=== PATIENT | male | born 1935 | race Caucasian/White ===

== ENCOUNTER 2019-04-09 05:56 | Emergency (ER) | payer MEDICARE ==
[~2019-04-09 05:56] MED LIST: ALLO100T PO; AMLO10TA7 PO; AMOX-426 PO; ASPI-555 PO; ATEN25TA PO; AZIT500T4 PO; HYDR25TA PO; POTA8TAB4 PO; ROSU20TA23 PO; WARF10TA45 PO
[2019-04-09 06:33] LABS: BASOPHILS % (AUTO) 0.5 % (0.0-5.0); EOSINOPHILS % (AUTO) 2.1 % (0.0-8.0); HEMATOCRIT 41.1 % (42-54); LYMPHOCYTES % (AUTO) 11.5 % (21.0-51.0); MEAN CORPUSCULAR HEMOGLOBIN 30.2 pg (27.0-33.0); MEAN CORPUSCULAR HGB CONC 33.9 g/dL (32.0-36.0); MEAN CORPUSCULAR VOLUME 89.1 fL (79-99); MONOCYTES % (AUTO) 10.9 % (3.0-13.0); PLATELET COUNT (AUTO) 175 K/uL (130-400); RED BLOOD CELL COUNT(AUTO) 4.61 MIL/uL (4.50-6.20); RED CELL DISTRIBUTION WIDTH 14.7 % (11.0-15.5)
[2019-04-09 06:43] LABS: POTASSIUM 3.7 mmol/L (3.5-5.1)
[2019-04-09 06:46] LABS: INR 2.51 (0.85-1.15); PARTIAL THROMBOPLASTIN TIME 44.3 SEC (26.3-35.5); PROTHROMBIN TIME 25.4 SEC (9.6-11.6)
[2019-04-09 06:49] LABS: ALBUMIN 3.8 g/dL (3.5-5.0); BILIRUBIN,TOTAL 0.6 mg/dL (0.2-1.0); TOTAL PROTEIN, SERUM 7.9 g/dL (6.0-8.3)
[2019-04-09 07:02] LABS: B-TYPE NATRIURETIC PEPTIDE 245 pg/mL (0-100)
== END 2019-04-09 07:07 | disposition home or self-care (01) ==
LOC: EDH 05:56
DX: J06.9 Acute upper respiratory infection, unspecified (principal); I10 Essential (primary) hypertension; E78.5 Hyperlipidemia, unspecified; Z95.2 Presence of prosthetic heart valve; Z87.891 Personal history of nicotine dependence; Z88.8 Allergy status to other drugs, medicaments and biological substances
CPT/HCPCS: 36415; 71045; 80053; 82550; 83880; 84484; 85025; 85610; 85730; 87804; 93005

== ENCOUNTER 2020-09-18 16:50 | Inpatient (IN) | payer MEDICARE ==
[~2020-09-18] VITALS: Ht 175.3 cm; Wt 106.6 kg
[2020-09-18] MEDS: AMLODIPINE 5 MG TAB PO SCH (11:45)
[~2020-09-18 16:50] MED LIST changes: +AMLO-258 PO; -AMLO10TA7 PO; -ASPI-555 PO; +ASPI-556 PO; -POTA8TAB4 PO; +POTA8TAB71 PO
[2020-09-18 17:47] LABS: ABG BASE EXCESS -0.3 mmol/L (-2.0-3.0); ABG HCO3 24.5 mmol/L (21.0-28.0); ABG OXYGEN SATURATION 92.9 % (95.0-99.0); ABG PCO2 41 mmHg (35-48)
[2020-09-18 18:04] LABS: BASOPHILS % (AUTO) 0.7 % (0.0-5.0); EOSINOPHILS % (AUTO) 1.3 % (0.0-8.0); HEMATOCRIT 41.8 % (42-54); LYMPHOCYTES % (AUTO) 7.5 % (21.0-51.0); MEAN CORPUSCULAR HEMOGLOBIN 30.9 pg (27.0-33.0); MEAN CORPUSCULAR VOLUME 91.1 fL (79-99); MONOCYTES % (AUTO) 11.1 % (3.0-13.0); PLATELET COUNT (AUTO) 219 K/uL (130-400); RED BLOOD CELL COUNT(AUTO) 4.59 MIL/uL (4.50-6.20); RED CELL DISTRIBUTION WIDTH 14.9 % (11.0-15.5); WHITE BLOOD COUNT (AUTO) 10.7 K/uL (4.8-10.8)
[2020-09-18 18:20] LABS: INR 2.64 (0.85-1.15); PROTHROMBIN TIME 26.3 SEC (9.6-11.6)
[2020-09-18 18:21] LABS: PARTIAL THROMBOPLASTIN TIME 37.2 SEC (26.3-35.5)
[2020-09-18 18:26] LABS: B-TYPE NATRIURETIC PEPTIDE 215 pg/mL (0-100)
[2020-09-18 18:40] LABS: CREATININE 1.2 mg/dL (0.5-1.5); POTASSIUM 4.6 mmol/L (3.5-5.1)
[2020-09-18 18:42] LABS: ALBUMIN 4.4 g/dL (3.5-5.0); BILIRUBIN,TOTAL 1.6 mg/dL (0.2-1.0); TOTAL PROTEIN, SERUM 8.4 g/dL (6.0-8.3)
[2020-09-18] MEDS ORDERED: NITROGLYCERIN 1GM OINT 1 INCH/1GM TD ONE (20:09)
[2020-09-18] MEDS ORDERED: FUROSEMIDE 20MG VIAL ONE (20:09)
[2020-09-18] MEDS ORDERED: ZOSYN 3.375GM+NS 50ML 50 ML IV ONE (20:09)
[2020-09-18] MEDS ORDERED: IOHEXOL-350 75 ML VIAL IV ONE (21:34)
[2020-09-18] MEDS ORDERED: GUAIFENESIN-DM 200/20 MG 10 ML PO PRN (23:15)
[2020-09-18] MEDS ORDERED: ACETAMINOPHEN 325 MG TAB PO PRN (23:15)
[2020-09-18] MEDS ORDERED: ONDANSETRON 4MG INJ IV PRN (23:15)
[2020-09-18] MEDS ORDERED: LACTULOSE 20 GM/30 ML UDCUP PO PRN (23:15)
[2020-09-18] MEDS ORDERED: SOLU-MEDROL 125MG VIAL ONE (23:39)
[2020-09-18] MEDS: ATORVASTATIN 40 MG TABLET PO SCH (23:40)
[2020-09-18] MEDS: WARFARIN SODIUM 5 MG TAB PO SCH (23:45)
[2020-09-18] MEDS: METOPROLOL SUCCINATE 50 MG TAB.SR.24H PO SCH (23:50)
[2020-09-19] MEDS ORDERED: POTASSIUM CHLORIDE 10% ELIXIR 20 MEQ/15 ML UDCUP PO PRN
[2020-09-19] MEDS: ASPIRIN 325 MG TABLET PO SCH
[2020-09-19] MEDS ORDERED: KCL 20 MEQ ERTAB PO PRN
[2020-09-19] MEDS ORDERED: MAGNESIUM 2GM PREMIX 50ML 50 ML IV PRN
[2020-09-19] MEDS ORDERED: POTASSIUM CHLORIDE 20MEQ/100ML 100 ML IV PRN
[2020-09-19] MEDS ORDERED: ATORVASTATIN 40 MG TABLET ONE (00:03)
[2020-09-19] MEDS: IPRATROPIUM/ALBUTEROL SULFATE 3 ML SOLUTION IH SCH ×6 (02:00→22:00)
[2020-09-19] MEDS: ZOSYN 3.375GM+NS 50ML 50 ML IV SCH ×3 (05:00→20:30)
[2020-09-19] MEDS ORDERED: NITROGLYCERIN 1GM OINT 1 INCH/1GM TD ONE ×2 (05:57→08:35)
[2020-09-19] MEDS ORDERED: ZOSYN 3.375GM+NS 50ML 50 ML IV ONE (05:57)
[2020-09-19] MEDS ORDERED: ACETAMINOPHEN 325 MG TAB ONE (06:14)
[2020-09-19] MEDS: INSULIN HUMULIN R 100 UNIT/ML 3ML SQ SCH ×4 (07:30→21:48)
[2020-09-19] MEDS: SOLU-MEDROL 125MG VIAL IV SCH ×3 (08:00→16:00)
[2020-09-19] MEDS: NITROGLYCERIN 1GM OINT 1 INCH/1GM TD SCH ×3 (08:00→16:26)
[2020-09-19] MEDS ORDERED: SOLU-MEDROL 125MG VIAL ONE (08:34)
[2020-09-19] MEDS ORDERED: AMIODARONE 200 MG TABLET PO ONE (08:34)
[2020-09-19] MEDS ORDERED: FUROSEMIDE 40MG VIAL ONE (08:34)
[2020-09-19] MEDS ORDERED: BENZONATATE 100 MG CAPSULE PO ONE (08:34)
[2020-09-19] MEDS ORDERED: FAMOTIDINE 20MG VIAL IV ONE (08:35)
[2020-09-19] MEDS ORDERED: ASPIRIN 81MG CHEW TAB ONE (08:37)
[2020-09-19] MEDS ORDERED: AMLODIPINE 5 MG TAB ONE (08:37)
[2020-09-19] MEDS ORDERED: SPIRONOLACTONE 25 MG TAB ONE (08:38)
[2020-09-19] MEDS ORDERED: MULTIVITAMIN TABLET ONE (08:38)
[2020-09-19] MEDS ORDERED: METOPROLOL SUCCINATE 50 MG TAB.SR.24H PO ONE (08:38)
[2020-09-19] MEDS: BENZONATATE 100 MG CAPSULE PO SCH ×3 (09:00→20:33)
[2020-09-19] MEDS: AMLODIPINE 5 MG TAB PO SCH (09:00)
[2020-09-19] MEDS: MULTIVITAMIN TABLET PO SCH (09:00)
[2020-09-19] MEDS: ASPIRIN 81MG CHEW TAB PO SCH (09:00)
[2020-09-19] MEDS: SPIRONOLACTONE 25 MG TAB PO SCH (09:00)
[2020-09-19] MEDS: METOPROLOL SUCCINATE 50 MG TAB.SR.24H PO SCH (09:00)
[2020-09-19] MEDS: AMIODARONE 200 MG TABLET PO SCH ×2 (09:00→20:31)
[2020-09-19] MEDS: FAMOTIDINE 20MG VIAL IV SCH (09:00)
[2020-09-19] MEDS: FUROSEMIDE 40MG VIAL IVP SCH ×2 (09:00→20:32)
[2020-09-19] MEDS ORDERED: INSULIN HUMULIN R 100 UNIT/ML 3ML ONE (11:16)
[2020-09-19 12:31] VITALS: BP 150/71
[2020-09-19 16:30] VITALS: BP 129/55
[2020-09-19 20:08] VITALS: BP 132/43
[2020-09-19] MEDS: ATORVASTATIN 40 MG TABLET PO SCH (20:32)
[2020-09-19 23:08] VITALS: BP 120/51
[2020-09-19] MEDS ORDERED: ALLOPURINOL 100 MG TABLET PO SCH (23:35)
[2020-09-19] MEDS: WARFARIN SODIUM 5 MG TAB PO SCH (23:52)
[2020-09-19] MEDS: ALLOPURINOL 100 MG TABLET PO SCH (23:54)
[2020-09-20] MEDS: ASPIRIN 325 MG TABLET PO SCH
[2020-09-20] MEDS: SOLU-MEDROL 125MG VIAL IV SCH ×4 (00:15→23:47)
[2020-09-20] MEDS: NITROGLYCERIN 1GM OINT 1 INCH/1GM TD SCH ×2 (00:18→08:34)
[2020-09-20] MEDS: IPRATROPIUM/ALBUTEROL SULFATE 3 ML SOLUTION IH SCH ×6 (02:07→21:34)
[2020-09-20 04:26] VITALS: BP 124/49
[2020-09-20] MEDS: ZOSYN 3.375GM+NS 50ML 50 ML IV SCH (04:40)
[2020-09-20 05:43] LABS: BASOPHILS % (AUTO) 0.1 % (0.0-5.0); HEMATOCRIT 37.7 % (42-54); LYMPHOCYTES % (AUTO) 1.7 % (21.0-51.0); MEAN CORPUSCULAR HEMOGLOBIN 30.6 pg (27.0-33.0); MEAN CORPUSCULAR HGB CONC 34.2 g/dL (32.0-36.0); MEAN CORPUSCULAR VOLUME 89.5 fL (79-99); MONOCYTES % (AUTO) 2.6 % (3.0-13.0); PLATELET COUNT (AUTO) 223 K/uL (130-400); RED BLOOD CELL COUNT(AUTO) 4.21 MIL/uL (4.50-6.20); RED CELL DISTRIBUTION WIDTH 14.8 % (11.0-15.5); WHITE BLOOD COUNT (AUTO) 20.3 K/uL (4.8-10.8)
[2020-09-20 05:49] LABS: CREATININE 1.6 mg/dL (0.5-1.5)
[2020-09-20 05:56] LABS: B-TYPE NATRIURETIC PEPTIDE 343 pg/mL (0-100)
[2020-09-20] MEDS: INSULIN HUMULIN R 100 UNIT/ML 3ML SQ SCH ×4 (06:23→21:00)
[2020-09-20 07:30] VITALS: BP 124/52
[2020-09-20] MEDS ORDERED: CEFEPIME HCL 1 GM VIAL IVP SCH (08:15)
[2020-09-20] MEDS: ASPIRIN 81MG CHEW TAB PO SCH (08:31)
[2020-09-20] MEDS: SPIRONOLACTONE 25 MG TAB PO SCH (08:32)
[2020-09-20] MEDS: AMIODARONE 200 MG TABLET PO SCH ×2 (08:32→22:52)
[2020-09-20] MEDS: MULTIVITAMIN TABLET PO SCH (08:32)
[2020-09-20] MEDS: AMLODIPINE 5 MG TAB PO SCH (08:32)
[2020-09-20] MEDS: METOPROLOL SUCCINATE 50 MG TAB.SR.24H PO SCH (08:33)
[2020-09-20] MEDS: FAMOTIDINE 20MG VIAL IV SCH ×2 (08:33→22:52)
[2020-09-20] MEDS: BENZONATATE 100 MG CAPSULE PO SCH ×3 (08:54→22:52)
[2020-09-20 11:54] VITALS: BP 130/60
[2020-09-20] MEDS: CEFTRIAXONE 1G VIAL IVP SCH (13:19)
[2020-09-20] MEDS: AZITHROMYCIN 500MG+NS 250ML 250 ML IV SCH (13:19)
[2020-09-20] MEDS: WARFARIN SODIUM 5 MG TAB PO SCH (17:01)
[2020-09-20 18:14] VITALS: BP 118/49
[2020-09-20 19:00] VITALS: BP 125/66
[2020-09-20] MEDS: ATORVASTATIN 40 MG TABLET PO SCH (22:52)
[2020-09-20] MEDS: ALLOPURINOL 100 MG TABLET PO SCH (22:52)
[2020-09-21] VITALS (8 sets, daily range): BP systolic 109–128; BP diastolic 48–58
[2020-09-21] MEDS: IPRATROPIUM/ALBUTEROL SULFATE 3 ML SOLUTION IH SCH ×6 (02:05→22:47)
[2020-09-21 05:06] LABS: HEMATOCRIT 37.4 % (42-54); MEAN CORPUSCULAR HEMOGLOBIN 30.3 pg (27.0-33.0); MEAN CORPUSCULAR HGB CONC 33.4 g/dL (32.0-36.0); MEAN CORPUSCULAR VOLUME 90.8 fL (79-99); RED BLOOD CELL COUNT(AUTO) 4.12 MIL/uL (4.50-6.20); RED CELL DISTRIBUTION WIDTH 14.9 % (11.0-15.5); WHITE BLOOD COUNT (AUTO) 16.8 K/uL (4.8-10.8)
[2020-09-21 05:25] LABS: CREATININE 1.3 mg/dL (0.5-1.5); POTASSIUM 4.5 mmol/L (3.5-5.1)
[2020-09-21] MEDS: INSULIN HUMULIN R 100 UNIT/ML 3ML SQ SCH ×4 (06:07→20:44)
[2020-09-21] MEDS: SOLU-MEDROL 125MG VIAL IV SCH ×2 (07:43→18:13)
[2020-09-21] MEDS: AMLODIPINE 5 MG TAB PO SCH ×2 (09:00→10:29)
[2020-09-21] MEDS: BENZONATATE 100 MG CAPSULE PO SCH ×3 (09:00→20:44)
[2020-09-21] MEDS: MULTIVITAMIN TABLET PO SCH (09:00)
[2020-09-21] MEDS: ASPIRIN 81MG CHEW TAB PO SCH (09:01)
[2020-09-21] MEDS: AMIODARONE 200 MG TABLET PO SCH ×2 (10:29→20:44)
[2020-09-21] MEDS: CEFTRIAXONE 1G VIAL IVP SCH (13:05)
[2020-09-21] MEDS: METOPROLOL SUCCINATE 50 MG TAB.SR.24H PO SCH (13:05)
[2020-09-21] MEDS: AZITHROMYCIN 500MG+NS 250ML 250 ML IV SCH (13:06)
[2020-09-21 14:50] LABS: INR 4.69 (0.85-1.15); PROTHROMBIN TIME 44.4 SEC (9.6-11.6)
[2020-09-21] MEDS: WARFARIN SODIUM 5 MG TAB PO SCH (15:08)
[2020-09-21] MEDS: ATORVASTATIN 40 MG TABLET PO SCH (20:44)
[2020-09-21] MEDS: ALLOPURINOL 100 MG TABLET PO SCH (20:44)
[2020-09-21] MEDS: FAMOTIDINE 20MG VIAL IV SCH (20:44)
[2020-09-21] MEDS ORDERED: FUROSEMIDE 40MG VIAL IV SCH (23:00)
[2020-09-22] MEDS: IPRATROPIUM/ALBUTEROL SULFATE 3 ML SOLUTION IH SCH ×6 (01:22→22:00)
[2020-09-22 04:48] VITALS: BP 119/52
[2020-09-22 05:09] LABS: HEMATOCRIT 35.4 % (42-54); MEAN CORPUSCULAR HEMOGLOBIN 30.9 pg (27.0-33.0); MEAN CORPUSCULAR HGB CONC 33.9 g/dL (32.0-36.0); MEAN CORPUSCULAR VOLUME 91.2 fL (79-99); RED BLOOD CELL COUNT(AUTO) 3.88 MIL/uL (4.50-6.20); RED CELL DISTRIBUTION WIDTH 15.3 % (11.0-15.5); WHITE BLOOD COUNT (AUTO) 14.6 K/uL (4.8-10.8)
[2020-09-22 05:18] LABS: CREATININE 1.2 mg/dL (0.5-1.5); MAGNESIUM 2.6 mg/dL (1.80-2.40); PHOSPHORUS 3.4 mg/dL (2.5-4.9); POTASSIUM 4.2 mmol/L (3.5-5.1)
[2020-09-22 05:50] LABS: PROTHROMBIN TIME 41.7 SEC (9.6-11.6)
[2020-09-22 05:51] LABS: INR 4.38 (0.85-1.15)
[2020-09-22] MEDS: INSULIN HUMULIN R 100 UNIT/ML 3ML SQ SCH ×4 (06:21→19:52)
[2020-09-22 07:00] VITALS: BP 131/59
[2020-09-22] MEDS: FUROSEMIDE 20MG VIAL IV SCH ×2 (08:49→19:48)
[2020-09-22] MEDS: SOLU-MEDROL 125MG VIAL IV SCH ×2 (08:49→19:48)
[2020-09-22] MEDS: BENZONATATE 100 MG CAPSULE PO SCH ×3 (08:50→19:47)
[2020-09-22] MEDS: ASPIRIN 81MG CHEW TAB PO SCH (08:50)
[2020-09-22] MEDS: AMIODARONE 200 MG TABLET PO SCH ×2 (08:50→19:47)
[2020-09-22] MEDS: MULTIVITAMIN TABLET PO SCH (08:50)
[2020-09-22] MEDS: METOPROLOL SUCCINATE 50 MG TAB.SR.24H PO SCH (08:50)
[2020-09-22] MEDS: AMLODIPINE 5 MG TAB PO SCH (08:50)
[2020-09-22 11:00] VITALS: BP 126/53
[2020-09-22] MEDS: CEFTRIAXONE 1G VIAL IVP SCH (12:56)
[2020-09-22] MEDS: AZITHROMYCIN 500MG+NS 250ML 250 ML IV SCH (13:00)
[2020-09-22 16:00] VITALS: BP 118/61
[2020-09-22] MEDS: WARFARIN SODIUM 5 MG TAB PO SCH (16:00)
[2020-09-22 19:06] VITALS: BP 139/63
[2020-09-22] MEDS: ALLOPURINOL 100 MG TABLET PO SCH (19:47)
[2020-09-22] MEDS: FAMOTIDINE 20MG VIAL IV SCH (19:47)
[2020-09-22] MEDS: ATORVASTATIN 40 MG TABLET PO SCH (19:48)
[2020-09-22 23:46] VITALS: BP 107/47
[2020-09-23] MEDS: IPRATROPIUM/ALBUTEROL SULFATE 3 ML SOLUTION IH SCH ×6 (02:03→22:59)
[2020-09-23 03:16] VITALS: BP 119/54
[2020-09-23 04:50] LABS: HEMATOCRIT 37.9 % (42-54); MEAN CORPUSCULAR HEMOGLOBIN 30.9 pg (27.0-33.0); MEAN CORPUSCULAR VOLUME 90.9 fL (79-99); RED BLOOD CELL COUNT(AUTO) 4.17 MIL/uL (4.50-6.20); RED CELL DISTRIBUTION WIDTH 15.2 % (11.0-15.5)
[2020-09-23 04:56] LABS: INR 3.03 (0.85-1.15); PROTHROMBIN TIME 29.9 SEC (9.6-11.6)
[2020-09-23 04:57] LABS: PARTIAL THROMBOPLASTIN TIME 35.5 SEC (26.3-35.5)
[2020-09-23 05:01] LABS: CREATININE 1.3 mg/dL (0.5-1.5); POTASSIUM 4.2 mmol/L (3.5-5.1)
[2020-09-23 07:00] VITALS: BP 136/62
[2020-09-23 07:06] LABS: ABG BASE EXCESS -0.1 mmol/L (-2.0-3.0); ABG HCO3 24.5 mmol/L (21.0-28.0); ABG OXYGEN SATURATION 92.5 % (95.0-99.0); ABG PCO2 40 mmHg (35-48)
[2020-09-23] MEDS: INSULIN HUMULIN R 100 UNIT/ML 3ML SQ SCH ×4 (07:16→20:45)
[2020-09-23] MEDS: ASPIRIN 81MG CHEW TAB PO SCH (08:12)
[2020-09-23] MEDS: AMIODARONE 200 MG TABLET PO SCH ×2 (08:12→21:31)
[2020-09-23] MEDS: BENZONATATE 100 MG CAPSULE PO SCH ×3 (08:12→21:31)
[2020-09-23] MEDS: MULTIVITAMIN TABLET PO SCH (08:13)
[2020-09-23] MEDS: AMLODIPINE 5 MG TAB PO SCH (08:13)
[2020-09-23] MEDS: SOLU-MEDROL 125MG VIAL IV SCH ×2 (08:15→21:31)
[2020-09-23] MEDS: FUROSEMIDE 20MG VIAL IV SCH ×2 (08:16→21:30)
[2020-09-23 11:00] VITALS: BP 122/56
[2020-09-23] MEDS: METOPROLOL SUCCINATE 50 MG TAB.SR.24H PO SCH (11:57)
[2020-09-23] MEDS: AZITHROMYCIN 500MG+NS 250ML 250 ML IV SCH (13:43)
[2020-09-23 16:00] VITALS: BP 115/62
[2020-09-23] MEDS: WARFARIN SODIUM 5 MG TAB PO SCH (16:00)
[2020-09-23 19:36] VITALS: BP 126/54
[2020-09-23] MEDS: FAMOTIDINE 20MG VIAL IV SCH (21:30)
[2020-09-23] MEDS: ALLOPURINOL 100 MG TABLET PO SCH (21:31)
[2020-09-23] MEDS: ATORVASTATIN 40 MG TABLET PO SCH (21:31)
[2020-09-23 23:05] VITALS: BP 133/62
[2020-09-24] MEDS: IPRATROPIUM/ALBUTEROL SULFATE 3 ML SOLUTION IH SCH ×4 (02:57→14:18)
[2020-09-24 03:03] VITALS: BP 125/61
[2020-09-24 05:28] LABS: POTASSIUM 4.1 mmol/L (3.5-5.1)
[2020-09-24 05:36] LABS: HEMATOCRIT 39.7 % (42-54); MEAN CORPUSCULAR HEMOGLOBIN 30.3 pg (27.0-33.0); MEAN CORPUSCULAR VOLUME 91.7 fL (79-99); RED BLOOD CELL COUNT(AUTO) 4.33 MIL/uL (4.50-6.20); RED CELL DISTRIBUTION WIDTH 14.8 % (11.0-15.5); WHITE BLOOD COUNT (AUTO) 12.9 K/uL (4.8-10.8)
[2020-09-24 05:37] LABS: INR 2.22 (0.85-1.15); PROTHROMBIN TIME 22.5 SEC (9.6-11.6)
[2020-09-24] MEDS: INSULIN HUMULIN R 100 UNIT/ML 3ML SQ SCH ×3 (07:30→16:30)
[2020-09-24 08:33] VITALS: BP 121/57
[2020-09-24] MEDS: SOLU-MEDROL 125MG VIAL IV SCH (09:48)
[2020-09-24] MEDS: FUROSEMIDE 20MG VIAL IV SCH (09:50)
[2020-09-24] MEDS: MULTIVITAMIN TABLET PO SCH (09:56)
[2020-09-24] MEDS: METOPROLOL SUCCINATE 50 MG TAB.SR.24H PO SCH (09:56)
[2020-09-24] MEDS: AMIODARONE 200 MG TABLET PO SCH (09:57)
[2020-09-24] MEDS: AMLODIPINE 5 MG TAB PO SCH (09:57)
[2020-09-24] MEDS: ASPIRIN 81MG CHEW TAB PO SCH (09:57)
[2020-09-24] MEDS: BENZONATATE 100 MG CAPSULE PO SCH ×2 (09:57→14:16)
[2020-09-24 10:00] VITALS: BP 127/59
[2020-09-24] MEDS ORDERED: AZITHROMYCIN 250 MG TABLET PO SCH (10:45)
[2020-09-24] MEDS ORDERED: PANTOPRAZOLE 40 MG TAB DR PO SCH (10:45)
[2020-09-24 12:00] VITALS: BP 132/63
[2020-09-24] MEDS: WARFARIN SODIUM 5 MG TAB PO SCH (16:31)
[2020-09-24] MEDS ORDERED: FUROSEMIDE 20 MG TABLET PO SCH (17:00)
[2020-09-24 17:03] VITALS: BP 131/61
[2020-09-25] MEDS ORDERED: PREDNISONE 20 MG TABLET PO SCH (09:00)
== END 2020-09-24 16:50 | disposition home or self-care (01) | DRG 189 ==
LOC: EDH 16:50 → EDHIP 22:29 → INTOOBSV 22:29 → OBSVTOIN 22:29 → UNDOADMOB 22:29 → 4BH 09-19 12:26 → EDHIP 09-19 12:26
PROVIDERS: ADMIT Internal Medicine Critical Care Medicine; ATTEND Internal Medicine Critical Care Medicine
DX: J96.21 Acute and chronic respiratory failure with hypoxia (principal); J44.1 Chronic obstructive pulmonary disease with (acute) exacerbation; N17.9 Acute kidney failure, unspecified; I11.0 Hypertensive heart disease with heart failure; K44.9 Diaphragmatic hernia without obstruction or gangrene; G47.30 Sleep apnea, unspecified; I50.9 Heart failure, unspecified; E78.5 Hyperlipidemia, unspecified; N40.0 Benign prostatic hyperplasia without lower urinary tract symptoms; I48.91 Unspecified atrial fibrillation; I25.10 Atherosclerotic heart disease of native coronary artery without angina pectoris; E66.9 Obesity, unspecified; M47.815 Spondylosis without myelopathy or radiculopathy, thoracolumbar region; Z20.822 Contact with and (suspected) exposure to COVID-19; T38.0X5A Adverse effect of glucocorticoids and synthetic analogues, initial encounter; Y92.89 Other specified places as the place of occurrence of the external cause; Z87.891 Personal history of nicotine dependence; Z68.34 Body mass index [BMI] 34.0-34.9, adult; Z95.2 Presence of prosthetic heart valve; Z79.82 Long term (current) use of aspirin; Z79.01 Long term (current) use of anticoagulants; Z79.899 Other long term (current) drug therapy; Z88.8 Allergy status to other drugs, medicaments and biological substances
CPT/HCPCS: 36415; 36600; 71045; 71275; 72131; 78481; 80048; 80053; 82550; 82803; 82948; 83605; 83735; 83880; 84100; 84145; 84443; 84484; 85025; 85027; 85610; 85730; 87040; 87426; 93005; 93306; 93356; 94640; 94664; 94760; 99291; A9512; G0378; J0456; J0692; J0696; J1815; J1940; J2543; J2930; J3490; Q9967; U0003

== ENCOUNTER 2020-10-31 10:25 | Emergency (ER) | payer MEDICARE ==
[~2020-10-31 10:25] MED LIST changes: -AMOX-426 PO; -AZIT500T4 PO; +POTA8TAB4 PO; -POTA8TAB71 PO
[2020-10-31 11:09] LABS: BASOPHILS % (AUTO) 0.7 % (0.0-5.0); EOSINOPHILS % (AUTO) 1.5 % (0.0-8.0); HEMATOCRIT 40.2 % (42-54); LYMPHOCYTES % (AUTO) 6.4 % (21.0-51.0); MEAN CORPUSCULAR HEMOGLOBIN 30.5 pg (27.0-33.0); MEAN CORPUSCULAR HGB CONC 32.8 g/dL (32.0-36.0); MEAN CORPUSCULAR VOLUME 92.8 fL (79-99); MONOCYTES % (AUTO) 8.7 % (3.0-13.0); PLATELET COUNT (AUTO) 273 K/uL (130-400); RED BLOOD CELL COUNT(AUTO) 4.33 MIL/uL (4.50-6.20); RED CELL DISTRIBUTION WIDTH 15.1 % (11.0-15.5); WHITE BLOOD COUNT (AUTO) 12.2 K/uL (4.8-10.8)
[2020-10-31 11:23] LABS: ALBUMIN 3.9 g/dL (3.5-5.0); BILIRUBIN,TOTAL 0.6 mg/dL (0.2-1.0); CREATININE 1.3 mg/dL (0.5-1.5); POTASSIUM 4.4 mmol/L (3.5-5.1); TOTAL PROTEIN, SERUM 7.9 g/dL (6.0-8.3)
[2020-10-31 11:52] LABS: INR 2.25 (0.85-1.15); PROTHROMBIN TIME 22.1 SEC (9.6-11.6)
== END 2020-10-31 14:45 | disposition home or self-care (01) ==
LOC: EDH 10:25
DX: R06.02 Shortness of breath (principal); R00.1 Bradycardia, unspecified; I48.91 Unspecified atrial fibrillation; I50.9 Heart failure, unspecified; E78.5 Hyperlipidemia, unspecified; I10 Essential (primary) hypertension; Z87.891 Personal history of nicotine dependence; Z88.2 Allergy status to sulfonamides
CPT/HCPCS: 36415; 71045; 80053; 83880; 84484; 85025; 85610; 85730; 93005

== ENCOUNTER → 2021-11-13 | Outpatient (CLI) | payer MEDICARE ==
[~2021-11-13] MED LIST changes: -POTA8TAB4 PO; +POTA8TAB71 PO
== END | disposition home or self-care (01) ==
LOC: OIH 15:24
PROVIDERS: ATTEND Internal Medicine Cardiovascular Disease
DX: I11.9 Hypertensive heart disease without heart failure (principal); Z95.2 Presence of prosthetic heart valve
CPT/HCPCS: 93306

== ENCOUNTER → 2021-12-04 | Outpatient (CLI) | payer MEDICARE ==
[~2021-12-04] MED LIST changes: +BENZ-39 PO; +CEFD300C3 PO; +DOXY100T21 PO; +FURO40TA5 PO; +FURO80TA3 PO; +METO-391 PO; +MULT-1333 PO; +PRED20TA3 PO; +SPIR100T5 PO; +WARF-57 PO; +WARF6TAB49 PO
[2021-12-04 12:38] LABS: CREATININE 1.2 mg/dL (0.5-1.5); POTASSIUM 4.9 mmol/L (3.5-5.1)
== END | disposition home or self-care (01) ==
LOC: LAB 09:10
PROVIDERS: ATTEND Internal Medicine Cardiovascular Disease
DX: I10 Essential (primary) hypertension (principal); J44.1 Chronic obstructive pulmonary disease with (acute) exacerbation
CPT/HCPCS: 36415; 80048; 83880

== ENCOUNTER → 2022-01-27 | Outpatient (CLI) | payer MEDICARE, OTHER ==
[~2022-01-27] MED LIST changes: +ALBUTEROL 0.083% 2.5 MG/3 ML INH IH ONE; -ASPI-556 PO; -ATEN25TA PO; -HYDR25TA PO; -WARF10TA45 PO; -WARF6TAB49 PO
== END | disposition home or self-care (01) ==
LOC: RESP 09:36
PROVIDERS: ATTEND Internal Medicine Cardiovascular Disease
DX: R06.00 Dyspnea, unspecified (principal)
CPT/HCPCS: 94060

== ENCOUNTER → 2022-09-02 | Outpatient (CLI) | payer MEDICARE, OTHER ==
[~2022-09-02] MED LIST changes: -ALBUTEROL 0.083% 2.5 MG/3 ML INH IH ONE
== END | disposition home or self-care (01) ==
LOC: SHCH 13:56
PROVIDERS: ATTEND Internal Medicine Cardiovascular Disease
DX: I11.9 Hypertensive heart disease without heart failure (principal); I34.81 Nonrheumatic mitral (valve) annulus calcification; I27.20 Pulmonary hypertension, unspecified; Z95.2 Presence of prosthetic heart valve
CPT/HCPCS: 93306

== ENCOUNTER 2023-07-29 14:57 | Emergency (ER) | payer MEDICARE, OTHER ==
[~2023-07-29] VITALS: Ht 175.3 cm; Wt 90.7 kg
[2023-07-29 17:22] LABS: BASOPHILS # (AUTO) 0.07 K/uL (0.00-0.20); BASOPHILS % (AUTO) 0.7 % (0.0-5.0); EOSINOPHILS # (AUTO) 0.15 K/uL (0.00-0.70); EOSINOPHILS % (AUTO) 1.4 % (0.0-8.0); HEMATOCRIT 43.7 % (42-54); IMMATURE GRANULOCYTE ABSOLUTE 0.07 K/uL (0-1); MEAN CORPUSCULAR HEMOGLOBIN 30.8 pg (27.0-33.0); MEAN CORPUSCULAR HGB CONC 34.8 g/dL (32.0-36.0); MEAN CORPUSCULAR VOLUME 88.5 fL (79-99); MONOCYTES # (AUTO) 1.4 K/uL (0.1-1.0); MONOCYTES % (AUTO) 13.4 % (3.0-13.0); NEUTROPHILS # (AUTO) 7.9 K/uL (1.8-7.7); NEUTROPHILS % (AUTO) 74.8 % (40.0-77.0); PLATELET COUNT (AUTO) 221 K/uL (130-400); RED BLOOD CELL COUNT(AUTO) 4.94 MIL/uL (4.50-6.20); RED CELL DISTRIBUTION WIDTH 14.6 % (11.0-15.5); WHITE BLOOD COUNT (AUTO) 10.6 K/uL (4.8-10.8)
[2023-07-29 17:37] LABS: POTASSIUM 4.1 mmol/L (3.5-5.1)
[2023-07-29 17:41] LABS: ALBUMIN 3.9 g/dL (3.5-5.0); BILIRUBIN,TOTAL 0.5 mg/dL (0.2-1.0); MAGNESIUM 2.5 mg/dL (1.80-2.40); TOTAL PROTEIN, SERUM 8.3 g/dL (6.0-8.3)
[2023-07-29 18:02] LABS: B-TYPE NATRIURETIC PEPTIDE 342 pg/mL (0-100)
[2023-07-29 18:18] VITALS: BP 133/75; PULSE 76; RESP 18; O2SAT 94
[2023-07-29] MEDS ORDERED: BENZ200C53 PO (18:32)
[2023-07-29] MEDS ORDERED: D-ME473S53 PO (18:32)
[2023-07-29] MEDS ORDERED: AZIT250T9 PO (18:32)
== END 2023-07-29 16:41 | disposition left against medical advice (07) ==
LOC: EDH 14:57
DX: J06.9 Acute upper respiratory infection, unspecified (principal); R05.9 Cough, unspecified; I11.0 Hypertensive heart disease with heart failure; I50.9 Heart failure, unspecified; Z79.899 Other long term (current) drug therapy; Z88.8 Allergy status to other drugs, medicaments and biological substances; Z95.2 Presence of prosthetic heart valve; Z95.810 Presence of automatic (implantable) cardiac defibrillator
CPT/HCPCS: 36415; 71045; 80053; 83735; 83880; 84484; 85025; 93005

== ENCOUNTER → 2024-03-16 | Outpatient (CLI) | payer MEDICARE ==
[~2024-03-16] MED LIST changes: +AZIT250T9 PO; +BENZ200C53 PO; +[UNRECOGNIZED DRUG - CODE] PO
== END | disposition home or self-care (01) ==
LOC: SHCH 11:44
PROVIDERS: ATTEND Internal Medicine Cardiovascular Disease
DX: I71.40 Abdominal aortic aneurysm, without rupture, unspecified (principal)
CPT/HCPCS: 93978

== ENCOUNTER → 2024-07-26 | Outpatient (CLI) | payer MEDICARE ==
[2024-07-26 12:31] LABS: BASOPHILS # (AUTO) 0.09 K/uL (0.00-0.20); BASOPHILS % (AUTO) 0.8 % (0.0-5.0); EOSINOPHILS # (AUTO) 0.31 K/uL (0.00-0.70); EOSINOPHILS % (AUTO) 2.8 % (0.0-8.0); IMMATURE GRANULOCYTE ABSOLUTE 0.05 K/uL (0-1); LYMPHOCYTES # (AUTO) 1.2 K/uL (1.0-4.8); LYMPHOCYTES % (AUTO) 10.3 % (21.0-51.0); MEAN CORPUSCULAR HEMOGLOBIN 30.7 pg (27.0-33.0); MEAN CORPUSCULAR HGB CONC 33.3 g/dL (32.0-36.0); MEAN CORPUSCULAR VOLUME 92.2 fL (79-99); MONOCYTES # (AUTO) 1.3 K/uL (0.1-1.0); MONOCYTES % (AUTO) 11.5 % (3.0-13.0); NEUTROPHILS # (AUTO) 8.2 K/uL (1.8-7.7); NEUTROPHILS % (AUTO) 74.2 % (40.0-77.0); PLATELET COUNT (AUTO) 251 K/uL (130-400); RED BLOOD CELL COUNT(AUTO) 4.99 MIL/uL (4.50-6.20); WHITE BLOOD COUNT (AUTO) 11.1 K/uL (4.8-10.8)
[2024-07-26 12:40] LABS: CREATININE 1.2 mg/dL (0.5-1.3); POTASSIUM 4.2 mmol/L (3.5-5.1)
[2024-07-26 12:53] LABS: B-TYPE NATRIURETIC PEPTIDE 312 pg/mL (0-100)
== END | disposition home or self-care (01) ==
LOC: LAB 09:57
PROVIDERS: ATTEND Internal Medicine Cardiovascular Disease
DX: I10 Essential (primary) hypertension (principal)
CPT/HCPCS: 36415; 80048; 83880; 85025

== ENCOUNTER → 2024-08-01 | Outpatient (CLI) | payer MEDICARE | END | disposition home or self-care (01) | LOC: RAH 13:56 | PROVIDERS: ATTEND Internal Medicine Cardiovascular Disease | DX: Z95.2 Presence of prosthetic heart valve (principal) | CPT/HCPCS: 93306 ==

== ENCOUNTER → 2024-10-13 | Outpatient (CLI) | payer MEDICARE | END | disposition home or self-care (01) | LOC: SHCH 07:44 | PROVIDERS: ATTEND Internal Medicine Cardiovascular Disease | DX: I70.0 Atherosclerosis of aorta (principal); I70.8 Atherosclerosis of other arteries; M54.9 Dorsalgia, unspecified | CPT/HCPCS: 93978 ==